=== PATIENT | male | born 1940 | race Caucasian/White ===

== ENCOUNTER 2017-02-11 10:03 | Emergency (ER) | payer OTHER, MEDICAID ==
[2017-02-11 10:19] VITALS: TEMP 98.6
--- NOTE | 2017-02-11 11:06 | EDPHY ---
H & P Stated Complaint: Cough,nasal congestion x 2 days Time Seen by Provider: 02/11/17 10:59 HPI/ROS: CHIEF COMPLAINT: URI symptoms x2 days HISTORY OF PRESENT ILLNESS: 76-year-old immunocompetent male, daily smoker, no history of chronic pulmonary or cardiac disease complaining 2 days of nasal congestion, sore throat, nonproductive cough, myalgias, subjective fever. No chest pain. No back pain. No abdominal pain. No nausea or vomiting. No rash. No international travel. PRIMARY CARE PROVIDER: Dr. Esdras Chou REVIEW OF SYSTEMS: A ten point review of systems was performed and is negative with the exception of the items mentioned in the HPI PAST MEDICAL & SURGICAL HISTORY: No pertinent medical or surgical history SOCIAL HISTORY: Daily cigarette smoker PHYSICAL EXAM (Prior to examination, patient consented to physical exam, hands were washed and my usual and customary physical exam procedures followed) 1) GENERAL: Well-developed, well-nourished, alert and oriented. Appears nontoxic . 2) HEAD: Normocephalic, atraumatic 3) HEENT: Pupils equal, round, reactive to light bilaterally. Sclera anicteric. Nasopharynx, oropharynx, clear, no lesions. No tonsillar enlargement or tonsillar exudate uvula midline. Ears bilaterally with normal tympanic membranes. 4) NECK: Full range of motion, no meningeal signs. 5) LUNGS: Clear auscultation bilaterally, no wheezes, no rhonchi, no retractions. 6) HEART: Regular rate and rhythm, no murmur, no heave, no gallop. 7) ABDOMEN: No guarding, no rebound, no focal tenderness, negative McBurney's, negative Damon's, negative Rovsing's, negative peritoneal sign, 8) MUSCULOSKELETAL: Moving all extremities, no focal areas of tenderness, no obvious trauma. No peripheral edema or discoloration. 9) BACK: No CVA tenderness,. 10) SKIN: No rash, no petechiae. 11) Psychiatric: Patient is oriented X 3, there is no agitation. DIFFERENTIAL DIAGNOSIS: in no particular include but limited to pneumonia, bronchitis, influenza - Personal History Current Tetanus Diphtheria and Acellular Pertussis (TDAP): Unsure - Medical/Surgical History Hx Asthma: No Hx Chronic Respiratory Disease: No Hx Diabetes: No Hx Cardiac Disease: No Hx Renal Disease: No Hx Cirrhosis: No Hx Alcoholism: No Hx HIV/AIDS: No Hx Splenectomy or Spleen Trauma: No Other PMH: PSH: HERNIA,GALLSTONES. PMH: GASTRIC ULCERS,PROSTATE - Social History Smoking Status: Current every day smoker Constitutional: Initial Vital Signs Temperature (C) 37 C 02/11/17 10:17 Heart Rate 61 02/11/17 10:17 Respiratory Rate 20 02/11/17 10:17 Blood Pressure 143/99 H 02/11/17 10:17 O2 Sat (%) 93 02/11/17 10:17 O2 Delivery Mode Room Air Allergies/Adverse Reactions: No Known Allergies Allergy (Verified 02/11/17 10:16) Home Medications: Medication Instructions Recorded AZITHROMYCIN [Z-PACK] 500 mg PO DAILY #1 packet 02/11/17 Albuterol [Proventil Inhaler HFA 1 - 2 puffs IH Q4PRN PRN #1 mdi 02/11/17 (*)] Benzonatate [Tessalon Pearles (RX)] 200 mg PO TID PRN #15 cap 02/11/17 Medical Decision Making - Diagnostics Imaging: Chest, Two Views - February 11, 2017 at 1103 hours History: Chest pain. Comparison: August 2014 Findings: Cardiac silhouette is within normal range. Bilateral peribronchial thickening. Atherosclerotic tortuous aorta. Hyperinflation of the lungs. Increased interstitial markings throughout both lungs again noted. Sclerotic lesion in the proximal left humerus is stable since the previous study, possibly representing bone infarct or enchondroma. Impression: 1. Atherosclerotic tortuous aorta. 2. COPD. 3. Bronchitis. 4. Increased interstitial markings in both lungs, which may represent mild interstitial pulmonary edema or interstitial pneumonitis versus interstitial pulmonary fibrosis. Consider CT chest imaging if clinically indicated. Dictated By: Kristofer Gtz Images reviewed by myself ED Course/Re-evaluation: Influenza swab negative. Chest x-ray shows no definitive infiltrate. Re- evaluation most recently at 12:20 p.m.. He is breathing comfortably Maintaining normal saturations. I think the patient can be discharged. Will plan on treatment for coverage for community-acquired pneumonia . No history of hospitalization recently. Usual and customary URI precautions instructions provided - Data Points Laboratory Results: 02/11/17 10:25 Influenza Typ A,B (DFA) NEGATIVE FOR FLU (NEGATIVE) Departure - Departure Disposition: Home, Routine, Self-Care Clinical Impression: Bronchitis Condition: Good Instructions: Acute Bronchitis (ED) Additional Instructions: Return to the emergency department immediately for change in breathing habits, change in voice, change in swallowing habits, change in mental status, or any other symptoms that concern you. Referrals: Esdras Chou MD [Primary Care Provider] - 1 day without fail Prescriptions: Albuterol [Proventil Inhaler HFA (*)] 1 - 2 puffs IH Q4PRN PRN #1 mdi PRN Reason: Cough, Moderate AZITHROMYCIN [Z-PACK] 500 mg PO DAILY #1 packet Benzonatate [Tessalon Pearles (RX)] 200 mg PO TID PRN #15 cap PRN Reason: Cough, Moderate
[2017-02-11 12:37] VITALS: BP 161/89; PULSE 64; RESP 16; O2SAT 95
== END 2017-02-11 12:36 | disposition home or self-care (01) ==
DX: J20.9 Acute bronchitis, unspecified (principal); F17.210 Nicotine dependence, cigarettes, uncomplicated

== ENCOUNTER 2017-12-04 09:14 | Emergency (ER) | payer OTHER, MEDICAID ==
--- NOTE | 2017-12-04 09:21 | EDPHY ---
H & P Time Seen by Provider: 12/04/17 09:17 HPI/ROS: Chief complaint. Cough congestion HPI. 77-year-old male presents emergency department with cough productive of phlegm. Began yesterday. He does not think fever. Vomiting yesterday. Somewhat achy. No chest discomfort or shortness of breath. No abdominal pain. Some upper airway congestion. ROS Constitutional. no fever/chills, no weakness Eyes. no problems with vision ENT. no sore throat, no nasal drainage Cardiovascular. no chest pain Respiratory. Cough Abdominal. Vomiting . no problems urinating MS. no calf pain/swelling, no neck/back pain, no joint pain Skin. no rash Lymph. no swollen glands Neuro. no headache, no dizziness, no difficulty walking or with speech Past Medical/Surgical History: Past medical history significant for hernia, gallstones, peptic ulcer disease, possible prostate cancer Social History: Single, daily smoker, no alcohol Smoking Status: Current every day smoker Physical Exam: General Appearance: Alert well-developed male mild distress. Initial temp 37.9degrees and O2 saturation 92% on room air Eyes: Pupils equal and round no pallor or injection. ENT, pharynx slightly injected without exudate. Mucous membranes moist Respiratory: No retractions. Mild inspiratory expiratory rhonchi Cardiovascular: Regular rate and rhythm. Gastrointestinal: Abdomen is soft and nontender, no masses, bowel sounds normal. Neurological: Awake and alert, sensory and motor exams grossly normal. Skin: Warm and dry, no rashes. Musculoskeletal: Neck is supple nontender. Extremities symmetrical, full range of motion. Psychiatric: Patient is oriented X 3, there is no agitation. Constitutional: Initial Vital Signs Temperature (C) 37.9 C 12/04/17 09:23 Heart Rate 54 L 12/04/17 09:23 Blood Pressure 155/80 H 12/04/17 09:23 O2 Sat (%) 92 12/04/17 09:23 O2 Delivery Mode Room Air Allergies/Adverse Reactions: No Known Allergies Allergy (Verified 02/11/17 10:16) Home Medications: Medication Instructions Recorded Albuterol [Proventil Inhaler HFA 1 - 2 puffs IH Q4PRN PRN #1 mdi 02/11/17 (*)] Benzonatate [Tessalon Pearles] 200 mg PO TID PRN #15 cap 02/11/17 Oseltamivir Phosphate [Tamiflu 75 75 mg PO BID #10 cap 12/04/17 mg (*)] Medical Decision Making - Diagnostics Imaging Results: Imaging Impressions Chest X-Ray 12/04/17 09:26 Impression: 1. Decreased inspiration with increase in interstitial markings mid to lower lungs along with some prominence of pulmonary vascularity centrally and mild increase in heart size. Consider fluid overload/early CHF. Chest x-ray interpreted by me shows diffuse increase in interstitial markings possibly secondary to CHF. No obvious pneumonia ED Course/Re-evaluation: Flu swab is positive. He is given Tamiflu in the emergency department Patient's O2 saturation will drop down into the 86 87% range but then comes back up to 92-93%. He does not have any symptoms of subjective shortness of breath. Patient and I discussed treatment plan including recommendation for hospitalization due to abnormal EKG and hypoxia. He expresses understanding and agreement but refuses admission. He is encouraged to follow up with Dr. Chou his PCP Differential Diagnosis: I have considered pneumonia, pneumothorax, influenza a - Data Points Laboratory Results: Laboratory Results 12/04/17 09:38 12/04/17 09:38 12/04/17 12/04/17 12/04/17 09:38 09:38 09:20 WBC 4.91 10^3/uL 10^3/uL (3.80-9.50) RBC 4.66 10^6/uL 10^6/uL (4.40-6.38) Hgb 14.3 g/dL g/dL (13.7-17.5) Hct 41.1 % % (40.0-51.0) MCV 88.2 fL fL (81.5-99.8) MCH 30.7 pg pg (27.9-34.1) MCHC 34.8 g/dL g/dL (32.4-36.7) RDW 13.8 % % (11.5-15.2) Plt Count 125 10^3/uL L 10^3/uL (150-400) MPV 10.6 fL fL (8.7-11.7) Neut % (Auto) 69.9 % % (39.3-74.2) Lymph % (Auto) 19.3 % % (15.0-45.0) Christian % (Auto) 10.2 % % (4.5-13.0) Eos % (Auto) 0.0 % L % (0.6-7.6) Baso % (Auto) 0.4 % % (0.3-1.7) Nucleat RBC Rel Count 0.0 % % (0.0-0.2) Absolute Neuts (auto) 3.43 10^3/uL 10^3/uL (1.70-6.50) Absolute Lymphs (auto) 0.95 10^3/uL L 10^3/uL (1.00-3.00) Absolute Monos (auto) 0.50 10^3/uL 10^3/uL (0.30-0.80) Absolute Eos (auto) 0.00 10^3/uL L 10^3/uL (0.03-0.40) Absolute Basos (auto) 0.02 10^3/uL 10^3/uL (0.02-0.10) Absolute Nucleated RBC 0.00 10^3/uL 10^3/uL (0-0.01) Immature Gran % 0.2 % % (0.0-1.1) Immature Gran # 0.01 10^3/uL 10^3/uL (0.00-0.10) Sodium 140 mEq/L mEq/L (135-145) Potassium 4.2 mEq/L mEq/L (3.5-5.2) Chloride 104 mEq/L mEq/L (97-110) Carbon Dioxide 22 mEq/l mEq/l (22-31) Anion Gap 14 mEq/L mEq/L (8-16) BUN 15 mg/dL mg/dL (7-23) Creatinine 1.3 mg/dL mg/dL (0.7-1.3) Estimated GFR 54 Glucose 88 mg/dL mg/dL (70-100) Calcium 8.6 mg/dL mg/dL (8.5-10.4) Nasal Influenza A PCR NEGATIVE FOR FLU A (NEGATIVE) Nasal Influenza B PCR FLU B DETECTED (NEGATIVE) Medications Given: Discontinued Medications Sodium Chloride (Ns) 1,000 mls @ 0 mls/hr IV EDNOW ONE; Wide Open PRN Reason: Protocol Stop: 12/04/17 09:27 Last Admin: 12/04/17 09:53 Dose: 1,000 mls Ondansetron HCl (Zofran) 4 mg IVP EDNOW ONE Stop: 12/04/17 09:27 Last Admin: 12/04/17 09:54 Dose: 4 mg Oseltamivir Phosphate (Tamiflu) 75 mg PO EDNOW ONE Stop: 12/04/17 11:44 Last Admin: 12/04/17 11:48 Dose: 75 mg Departure - Departure Disposition: Home, Routine, Self-Care Clinical Impression: Influenza Condition: Good Instructions: Influenza (ED) Additional Instructions: 20 of fluids and stay hydrated. Tylenol 650 mg every 6 hr for fever 4-6 hours as needed for fever it ibuprofen Referrals: Patient,NotPresent [Unknown] - As per Instructions Prescriptions: Oseltamivir Phosphate [Tamiflu 75 mg (*)] 75 mg PO BID #10 cap
[2017-12-04 09:26] VITALS: PULSE 54
[2017-12-04] MEDS ORDERED: ONDANSETRON 4 MG/2 ML VIAL IVP ONE (09:26)
[2017-12-04] MEDS ORDERED: NS 1,000 ML IV ONE (09:26)
[2017-12-04 09:52] LABS: PLATELET COUNT 125 10^3/uL (150-400)
[2017-12-04] MEDS ORDERED: OSELTAMIVIR PHOSPHATE 75 MG CAP PO ONE (11:43)
[2017-12-04 13:06] VITALS: BP 158/78; RESP 20; TEMP 98.2; O2SAT 91
--- NOTE | 2017-12-04 13:32 | GHP ---
[f rep st] HISTORY AND PHYSICAL DATE OF ADMISSION: 12/04/2017 HISTORY OF PRESENT ILLNESS: The patient is a pleasant 77-year-old gentleman with a history of colon cancer, who presents with a couple days of myalgias, malaise, and cough productive of phlegm. He has not had subjective fevers but he has not checked his temperature. He has no abdominal pain. No gabriella rtness of breath. REVIEW OF SYSTEMS: Complete 10-point review of systems conducted, negative except as in the HPI. PAST MEDICAL HISTORY: 1. Colon cancer. 2. Benign prostatic hypertrophy. 3. History of inguinal hernia. ALLERGIES: No known drug allergies. HOME MEDICATIONS: Albuterol, Tessalon Perles, and azithromycin. SOCIAL HISTORY: Two cigarettes a day. Rare alcohol. Retired, lives alone. FAMILY HISTORY: Parents are . PHYSICAL EXAMINATION: VITAL SIGNS: Temp 37.9, blood pressure 155/80, pulse 54, breathing at 19 time s a minute, 92% on room air. GENERAL: No acute distress. Appears uncomfortable. HEENT: Sclerae a nicteric. Oropharynx clear. Mucous membranes are moist. NECK: Supple without lymphadenopathy or J VD. LUNGS: Clear to auscultation bilaterally. HEART: S1, S2. ABDOMEN: Soft, nontender, nondiste nded. LOWER EXTREMITIES: No edema. Calves nontender. SKIN: Without rash. NEUROLOGIC: Exam is n onfocal. DIAGNOSTIC TESTING: Chest x-ray shows bilateral interstitial markings consistent with possible viral pneumonitis, interpreted as possible early CHF by the radiologist. It is not consistent with his cl inical scenario. LABORATORY DATA: Chem 7 normal. White count 5, hematocrit 41, platelets 125,000. He is influenza B positive. I discussed the case Dr. Sha Contreras. ASSESSMENT AND PLAN: A 77-year-old gentleman with influenza, who presents to the emergency room. 1. Hypoxemia. The patient was intermittently hypoxic here. He is 92% on room air with standing and shuffling around the room. I think he is safe for discharge. 2. Influenza, 5 days of 10 b.i.d. of Tamiflu, for which I have given him a prescription. DISPOSITION: I am discharging the patient home today with instructions to follow up for shortness of breath. Please note this will serve as a discharge summary. /[id number]/MODL
== END 2017-12-04 13:30 | disposition home or self-care (01) ==
LOC: EDUNIT#
DX: J11.1 Influenza due to unidentified influenza virus with other respiratory manifestations (principal); F17.200 Nicotine dependence, unspecified, uncomplicated; E86.9 Volume depletion, unspecified
CPT/HCPCS: 71045; 96374; 99284; J2405

== ENCOUNTER 2017-12-18 17:53 | Emergency (ER) | payer OTHER, MEDICAID ==
--- NOTE | 2017-12-18 18:15 | EDPHY ---
HPI/HX/ROS/PE/MDM Narrative: CHIEF COMPLAINT: Insomnia, "I want to sleep" HPI: The patient is a 77 y/o male arriving via EMS complaining of insomnia for the last 6 days. He has been using Benadryl to help him sleep, but is only sleeping for 1-2 hours per night. He wakes up because "my anxiety won't let me sleep." He describes pacing through the hallways. Right now he feels mentally foggy and just wants to sleep. He has been evaluated at [facility] for this 4 times in the last week, most recently today. He was prescribed Ativan and Trazodone for his insomnia, but has only tried the Trazodone and feels it makes him drowsy, which he doesn't like. He was referred by [facility] for admission to the hospital, but he can't tell me what they wanted us to admit him for. He doesn't want any medication from me that will make him drowsy and is asking for "something to knock me out." He also mentions a mild cough for several weeks. He was evaluated here for that 2 weeks ago and had a positive flu swab. He was offered admission for intermittent hypoxemia around 85-86% and an abnormal EKG, but declined. No copy of this EKG is available in our system for review. He was prescribed Tamiflu and given standard flu care and follow up instructions. REVIEW OF SYSTEMS: Aside from elements discussed in the HPI, a comprehensive 10-point review of systems was reviewed and is negative. PMH: Insomnia, hernia, gallstones, peptic ulcer disease, possible prostate cancer. SOCIAL HISTORY: Lives in [place] at [facility]. Daily smoker. Single. No alcohol use. Sagar [place] Prior medical records reviewed including ED visit 12/04/17 for cough. PHYSICAL EXAM: General:Patient is alert, in no acute distress. ENT:Eyes are normal to inspection. ENT inspection normal. Neck: Normal inspection. Full range of motion. Respiratory:No respiratory distress. Breath sounds normal bilaterally. Cardiovascular: Regular rate and rhythm. Strong peripheral pulses. Normal cap refill. Abdomen:The abdomen is nontender to palpation. There are no peritoneal signs. There are normal bowel sounds. Back: Normal to inspection. No tenderness to palpation. Skin: Normal color. No rash. Warm and dry. Extremities: Normal appearance. Full range of motion. Neuro: Oriented x3. Normal motor function. Normal sensory function. (Epi Mcfarlane) ED Course: On reassessment, patient does not want to go home and try taking his Ativan for anxiety to help him sleep. He tells me he has a regulatory affairs analyst knife at home that he is visualizing stabbing himself with in the abdomen. He is open to speaking with a mental health customer experience specialist juan. Standard psychiatric labs ordered plus EKG and troponin to rule out obvious cardiac causes for patient's symptoms. He could also be experiencing sleep apnea causing his nocturnal symptoms. The 12 lead EKG was interpreted by myself. See hard copy and/or "tracemaster" electronic copy for interpretation. (Epi Mcfarlane) [id number]: This patient has been re-evaluated this time. He slept here in the emergency room all night. He now reports to me the got a good night sleep any feels very well. He states he does not want harm self or anybody else. He states he is feeling very happened he got to sleep after 6 days of very little sleep. He earlier in the course of the hospital said that he wanted to stab himself in the abdomen with a knife if he could not get to sleep however reports to me that he does not want to do that. He states since sleeping all night feels very well he would like to go home. He states that he would like to go home and rest. He denies wanting to hurt himself or anybody else. Denies being suicidal. He contracts for safety. I will allow her to go home however he understands that if he has any further symptoms of thoughts want hurt himself or anybody else or has trouble sleeping or feels anxious she should return emergency room. (Michael Melendez) - Data Points Laboratory Results: Laboratory Results 12/18/17 18:40 12/18/17 18:40 12/18/17 12/18/17 12/18/17 20:16 18:40 18:40 WBC 6.50 10^3/uL 10^3/uL (3.80-9.50) RBC 4.37 10^6/uL L 10^6/uL (4.40-6.38) Hgb 13.3 g/dL L g/dL (13.7-17.5) Hct 37.9 % L % (40.0-51.0) MCV 86.7 fL fL (81.5-99.8) MCH 30.4 pg pg (27.9-34.1) MCHC 35.1 g/dL g/dL (32.4-36.7) RDW 13.3 % % (11.5-15.2) Plt Count 262 10^3/uL 10^3/uL (150-400) MPV 10.0 fL fL (8.7-11.7) Neut % (Auto) 65.2 % % (39.3-74.2) Lymph % (Auto) 22.6 % % (15.0-45.0) [place] % (Auto) 11.5 % % (4.5-13.0) Eos % (Auto) 0.0 % L % (0.6-7.6) Baso % (Auto) 0.5 % % (0.3-1.7) Nucleat RBC Rel Count 0.0 % % (0.0-0.2) Absolute Neuts (auto) 4.24 10^3/uL 10^3/uL (1.70-6.50) Absolute Lymphs (auto) 1.47 10^3/uL 10^3/uL (1.00-3.00) Absolute Monos (auto) 0.75 10^3/uL 10^3/uL (0.30-0.80) Absolute Eos (auto) 0.00 10^3/uL L 10^3/uL (0.03-0.40) Absolute Basos (auto) 0.03 10^3/uL 10^3/uL (0.02-0.10) Absolute Nucleated RBC 0.00 10^3/uL 10^3/uL (0-0.01) Immature Gran % 0.2 % % (0.0-1.1) Immature Gran # 0.01 10^3/uL 10^3/uL (0.00-0.10) Sodium 139 mEq/L mEq/L (135-145) Potassium 4.1 mEq/L mEq/L (3.5-5.2) Chloride 103 mEq/L mEq/L (97-110) Carbon Dioxide 23 mEq/l mEq/l (22-31) Anion Gap 13 mEq/L mEq/L (8-16) BUN 9 mg/dL mg/dL (7-23) Creatinine 1.0 mg/dL mg/dL (0.7-1.3) Estimated GFR > 60 Glucose 85 mg/dL mg/dL (70-100) Calcium 9.1 mg/dL mg/dL (8.5-10.4) Troponin I < 0.012 ng/mL ng/mL (0.000-0.034) Urine Opiates Screen NON-NEGATIVE H (NEGATIVE) Urine Barbiturates NEGATIVE (NEGATIVE) Ur Phencyclidine Scrn NEGATIVE (NEGATIVE) Ur Amphetamine Screen NEGATIVE (NEGATIVE) U Benzodiazepines Scrn NEGATIVE (NEGATIVE) Urine Cocaine Screen NEGATIVE (NEGATIVE) U Marijuana (THC) Screen NON-NEGATIVE H (NEGATIVE) General Time Seen by Provider: 12/18/17 18:04 Initial Vital Signs: Initial Vital Signs Temperature (C) 36.8 C 12/18/17 17:57 Heart Rate 70 12/18/17 17:57 Respiratory Rate 18 12/18/17 17:57 Blood Pressure 175/95 H 12/18/17 17:57 O2 Sat (%) 93 12/18/17 17:57 O2 Delivery Mode Room Air Allergies/Adverse Reactions: No Known Allergies Allergy (Verified 02/11/17 10:16) Home Medications: Medication Instructions Recorded Ativan 12/18/17 Benadryl 12/18/17 traZODone 12/18/17 Departure - Departure Disposition: Home, Routine, Self-Care Clinical Impression: Anxiety Insomnia Qualifiers: Insomnia type: unspecified Qualified Code(s): G47.00 - Insomnia, unspecified Condition: Good Instructions: Anxiety (ED), Insomnia (ED) Additional Instructions: 1. Return immediately to emergency room if you have thoughts of wanting to harm herself or anybody else. Referrals: Patient,NotPresent [Unknown] - As per Instructions Report Scribed for: Epi Mcfarlane Report Scribed by: Shante Prather Date of Report: 12/18/17 Time of Report: 18:15 Physician Review and Approval Statement: Portions of this note were transcribed by an ED scribe. I personally performed the history, physical exam, and medical decision making; and confirm the accuracy of the information in the transcribed note.
--- NOTE | 2017-12-18 18:49 | CPEKG ---
Heart Rate: 61 RR Interval: 984 P-R Interval: 160 QRSD Interval: 84 QT Interval: 416 QTC Interval: 419 P Bodfish: 64 QRS Bodfish: -38 T Wave Bodfish: 40 EKG Severity - OTHERWISE NORMAL ECG - EKG Impression: SINUS RHYTHM EKG Impression: LEFT AXIS DEVIATION Electronically Signed By: Kimberly Parker 19-Dec-2017 23:05:54
[2017-12-18 20:00] LABS: PLATELET COUNT 262 10^3/uL (150-400)
[2017-12-19 06:58] VITALS: BP 133/74; PULSE 74; RESP 16; TEMP 97.9; O2SAT 96
== END 2017-12-19 06:58 | disposition home or self-care (01) ==
LOC: EDUNIT#
DX: G47.00 Insomnia, unspecified (principal); F41.9 Anxiety disorder, unspecified
CPT/HCPCS: 80305

== ENCOUNTER 2018-01-06 15:18 | Emergency (ER) | payer OTHER, MEDICAID ==
[2018-01-06 15:24] VITALS: BP 162/96; PULSE 70; RESP 18; TEMP 97.9; O2SAT 94
--- NOTE | 2018-01-06 16:28 | EDPHY ---
H & P Stated Complaint: Insomnia x 1 month Time Seen by Provider: 01/06/18 16:23 - Personal History Current Tetanus Diphtheria and Acellular Pertussis (TDAP): Unsure - Medical/Surgical History Hx Asthma: No Hx Chronic Respiratory Disease: No Hx Diabetes: No Hx Cardiac Disease: No Hx Renal Disease: No Hx Cirrhosis: No Hx Alcoholism: No Hx HIV/AIDS: No Hx Splenectomy or Spleen Trauma: No Other PMH: PSH: HERNIA,. PMH: GASTRIC ULCERS,PROSTATE, Anxiety and Insomnia - Social History Smoking Status: Current every day smoker Constitutional: Initial Vital Signs Temperature (C) 36.6 C 01/06/18 15:21 Heart Rate 70 01/06/18 15:21 Respiratory Rate 18 01/06/18 15:21 Blood Pressure 162/96 H 01/06/18 15:21 O2 Sat (%) 94 01/06/18 15:21 O2 Delivery Mode Room Air Allergies/Adverse Reactions: No Known Allergies Allergy (Verified 02/11/17 10:16) Home Medications: Medication Instructions Recorded Ativan 12/18/17 Benadryl 12/18/17 traZODone 12/18/17 Medical Decision Making ED Course/Re-evaluation: CHIEF COMPLAINT: Insomnia x 1 month HISTORY OF PRESENT ILLNESS: The patient is a 77 y/o male with a history of anxiety complaining of insomnia and anxiety for one month. On 12/16/17, the patient was seen in this ED for similar symptoms. He had a an EKG and labs preformed during this visit. He was also evaluated my mental health as he stated he "wanted to stab himself in the abdomen". He has been taking 1mg PO Lorazepam at night. It was helping him sleep but he stopped taking it several nights ago as it made him "groggy". 2 nights ago he took 3 diphenhydramine which helped him sleep. Last night the diphenhydramine did not help his insomnia. Today he feels "stressed" but does not know why. He is still feeling anxious. REVIEW OF SYSTEMS: A 10 point review of systems was performed and is negative with the exception of the elements mentioned in the history of present illness. PHYSICAL EXAM: HR, BP, O2 Sat, RR. Temp noted General Appearance: Alert, well hydrated, appropriate, and non-toxic appearing. Head: Atraumatic without scalp tenderness or obvious injury Eyes: Pupils equal, round, reactive to light and accommodation, EOMI, no trauma , no injection. Ears: Clear bilaterally, no perforation, normal landmarks Nose: Atraumatic, no rhinorrhea, clear. Throat: Mucus membranes moist. Neck: Supple, nontender, no lymphadenopathy. Respiratory: No retractions, no distress, no wheezes, and no accessory muscle use. Lungs are clear to auscultation bilaterally. Cardiovascular: Regular rate and rhythm, no murmurs, rubs, or gallops. Good capillary refill all extremities. Gastrointestinal: Abdomen is soft, nontender, non-distended, no masses, no rebound, no guarding, no peritoneal signs. Musculoskeletal: Normal active ROM of all extremities, atraumatic. Neurological: Alert, appropriate, and interactive. Non-focal neuro. Skin: No rashes, good turgor, no nodules on palpation. Past medical history: Anxiety, insomnia, hernia, gallstones, peptic ulcer disease Past surgical history: Denies Family history: Denies Social history: Lives in [place], single, daily smoker, followed by Dr. Mayfield at [facility] DIFFERENTIAL DIAGNOSIS: The differential diagnosis for the patient's insomnia included but was not limited to insomnia, anxiety, functional and major depression, situational depression, medication side effect, drugs, and alcohol abuse. MEDICAL DECISION MAKING: The patient is a 77 y/o male with a history of insomnia and anxiety presenting with difficulty sleeping for 1 month that exacerbated 2 nights ago. He has been unable to sleep even while taking 3 diphenhydramine. His physical exam is normal; plan on consulting case management. 1712: Consulted with case management, they have advised the patient to take his Ativan as prescribed and [facility]. Reassessed patient and discussed case management plan. Return precautions provided; patient is comfortable with this plan. Departure - Departure Disposition: Home, Routine, Self-Care Clinical Impression: Anxiety Condition: Good Instructions: Anxiety (ED) Additional Instructions: 1. Call [facility] tomorrow morning and see if they can get you an appointment tomorrow to discuss alternative sleep aid medications or therapy. 2. Take Ativan as previously prescribed. 3. Return to the ED if you experience chest pain, shortness of breath, or fever Referrals: Esdras Chou MD [Primary Care Provider] - As per Instructions [facility],. [Clinic] - As per Instructions Report Scribed for: Aftab Sampson Report Scribed by: Julianne Snyder Date of Report: 01/06/18 Time of Report: 16:28
--- NOTE | 2018-01-06 17:30 | ASMTCMCOM ---
CM Note CM Note Notes: Pt here for insomnia and anxiety. Pt seen in the ED 12/18 & 12/04 for flu sx,insomnia, anxiety, and SI (due to insomnia). Pt is followed by Esdras Chou at [facility] and last time he was seen was 12/25/17; pt provided a Rxn for Ativan on 12/31 and given 4 tabs; instructed to take 1 tab at HS PRN. Pt has one tab left and states "it works but it makes me too groggy the next day." Pt requesting a different medication for helping him sleep. We discussed that he should follow-up with his PCP for new medication changes. Pt agreeable to taking his tab of Ativan (or only 1/2 tab) and has an appt this Wed. 01/08 with Esdras Chou but is going to call [facility] tomorrow morning to see if they can get him in tomorrow. This CM spoke with Tatiana, a clinician at [facility] and she is aware patient may call tomorrow for a sooner appt. Pt also provided information on [facility] walk-in crisis center and their Crisis hotline #. Pt states he will consider going to the crisis center and calling their hotline. Pt mentioned that he had to rent a car in order to get to the ED today. CM available for further assistance if needed. Date Signed: 01/06/2018 05:29 PM Electronically Signed By:Yomaira Mcfarland RN
--- NOTE | 2018-01-06 17:33 | ASDISCHSUM ---
Discharge Information Plan Status:Home with No Needs Medically Cleared to Leave: Discharge Date:01/06/2018 05:17 PM CM D/C Disposition:Home, Routine, Self-Care ADT D/C Disposition:Home, Routine, Self-Care Projected Discharge Date:01/06/2018 05:17 PM Transportation at D/C:Self Discharge Delay Reason: Follow-Up Date:01/06/2018 05:17 PM Discharge Slot: Final Diagnosis: Placement Information Patient Contact Information Contact Name:AVTARSOFIE Relationship: Address: Home Phone: Work Phone: City: Alternate Phone: State/Zip Code: Email: Financial Information Financial Class:Medicare Primary Plan Desc:MEDICARE OUTPATIENT Primary Plan Number:[id number] Secondary Plan Desc:MEDICAID [employer] [place] Secondary Plan Number:[id number] Assessment Information [facility] CM Progress Note CM Note CM Note Notes: Pt here for insomnia and anxiety. Pt seen in the ED 12/18 & 12/04 for flu sx,insomnia, anxiety, and SI (due to insomnia). Pt is followed by Esdras Chou at [facility] and last time he was seen was 12/25/17; pt provided a Rxn for Ativan on 12/31 and given 4 tabs; instructed to take 1 tab at HS PRN. Pt has one tab left and states "it works but it makes me too groggy the next day." Pt requesting a different medication for helping him sleep. We discussed that he should follow-up with his PCP for new medication changes. Pt agreeable to taking his tab of Ativan (or only 1/2 tab) and has an appt this Wed. 01/08 with Esdras Chou but is going to call [facility] tomorrow morning to see if they can get him in tomorrow. This CM spoke with Tatiana, a clinician at [facility] and she is aware patient may call tomorrow for a sooner appt. Pt also provided information on [facility] walk-in crisis center and their Crisis hotline #. Pt states he will consider going to the crisis center and calling their hotline. Pt mentioned that he had to rent a car in order to get to the ED today. CM available for further assistance if needed. Date Signed: 01/06/2018 05:29 PM Electronically Signed By:Yomaira Mcfarland RN Intervention Information
== END 2018-01-06 17:17 | disposition home or self-care (01) ==
DX: F41.9 Anxiety disorder, unspecified (principal); F17.200 Nicotine dependence, unspecified, uncomplicated